=== PATIENT | male | born 1980 | race Caucasian/White ===

== ENCOUNTER 2018-05-24 13:46 | Emergency (ER) | payer SELFPAY ==
--- NOTE | 2018-05-24 14:08 | EDM.PDOC ---
ED HPI GENERAL MEDICAL PROBLEM - General Chief Complaint: ENT Problem Stated Complaint: EAR PAIN Time Seen by Provider: 05/24/18 14:08 Source of Information: Reports: Patient History Limitations: Reports: No Limitations - History of Present Illness INITIAL COMMENTS - FREE TEXT/NARRATIVE: HISTORY AND PHYSICAL: History of present illness: Patient is a 38-year-old male here with complaint of left ear pain. He states that over the past couple of weeks he has had a cold with a cough, runny nose, sinus pain. He reports that he left sided sinus pressure that progressed to left ear pain. He states this morning he used Q-tips to clean out his ear and there was some blood on it. He denies any fevers, chills, nausea, vomiting, diarrhea, abdominal pain. He states cough has gotten better and denies shortness of breath or chest pain. Review of systems: As per history of present illness and below otherwise all systems reviewed and negative. Past medical history: As per history of present illness and as reviewed below otherwise noncontributory. Surgical history: As per history of present illness and as reviewed below otherwise noncontributory. Social history: No reported history of drug or alcohol abuse. Family history: As per history of present illness and as reviewed below otherwise noncontributory. Physical exam: General: Patient sitting comfortably in no acute distress and nontoxic appearing HEENT: Left TM is erythematous and bulging with loss of bony landmarks and light reflex. No maxillary or frontal sinus tenderness. Atraumatic, normocephalic, pupils reactive, negative for conjunctival pallor or scleral icterus, mucous membranes moist, throat clear, neck supple, nontender, trachea midline. No meningeal signs. Lungs: Clear to auscultation, breath sounds equal bilaterally, chest nontender. Heart: S1S2, regular, negative for clicks, rubs, or overt murmur. Abdomen: Soft, nondistended, nontender. Negative for masses or hepatosplenomegaly. Negative for costovertebral tenderness. No rigidity, rebound , guarding. Pelvis: Stable nontender. Genitourinary: Deferred. Rectal: Deferred. Extremities: Atraumatic, negative for cords or calf pain. Neurovascular unremarkable. Neuro: Awake, alert, oriented. Cranial nerves II through XII unremarkable. Cerebellum unremarkable. Motor and sensory unremarkable throughout. Exam nonfocal. Notes: Diagnostics: None Therapeutics: None Prescriptions: Augmentin Impression: Left otitis media Plan: 1. Take medication as instructed. May do saline rinses and [id number] decongestants as needed. 2. Follow up with primary care provider 3. Return to ED as needed as discussed Definitive disposition and diagnosis as appropriate pending reevaluation and review of above. - Related Data Allergies Allergy/AdvReac Type Severity Reaction Status Date / Time No Known Allergies Allergy Verified 05/24/18 14:06 Home Meds: Home Meds Amoxicillin/Clavulanate K [Augmentin 875-125 MG] 1 tab PO BID 7 Days #14 tablet 05/24/18 [Rx] ED ROS ENT - Review of Systems Review Of Systems: ROS reveals no pertinent complaints other than HPI. ED EXAM, ENT - Physical Exam Exam: See Below (See dictation) Departure - Departure Time of Disposition: 14:07 Disposition: Home, Self-Care 01 Condition: Good Clinical Impression: Left otitis media - Discharge Information Prescriptions: Amoxicillin/Clavulanate K [Augmentin 875-125 MG] 1 tab PO BID 7 Days #14 tablet Referrals: PCP,None [Primary Care Provider] - Forms: ED Department Discharge Additional Instructions: The following information is given to patients seen in the emergency department who are being discharged to home. This information is to outline your options for follow-up care. We provide all patients seen in our emergency department with a follow-up referral. The need for follow-up, as well as the timing and circumstances, are variable depending upon the specifics of your emergency department visit. If you don't have a primary care physician on staff, we will provide you with a referral. We always advise you to contact your personal physician following an emergency department visit to inform them of the circumstance of the visit and for follow-up with them and/or the need for any referrals to a consulting specialist. The emergency department will also refer you to a specialist when appropriate. This referral assures that you have the opportunity for follow-up care with a specialist. All of these measure are taken in an effort to provide you with optimal care, which includes your follow-up. Under all circumstances we always encourage you to contact your private physician who remains a resource for coordinating your care. When calling for follow-up care, please make the office aware that this follow-up is from your recent emergency room visit. If for any reason you are refused follow-up, please contact the [facility] Emergency Department at and asked to speak to the emergency department charge nurse. [facility] [address] [place] [id number] [id number] 1. Take medication as instructed. May do saline rinses and wzrx-wlp-nomuyne decongestants as needed. 2. Follow up with primary care provider 3. Return to ED as needed as discussed
== END 2018-05-24 14:19 | disposition home or self-care (01) ==
LOC: MW.ED 13:46
DX: H66.92 Otitis media, unspecified, left ear (principal)
CPT/HCPCS: 99282; 99283

== ENCOUNTER 2018-10-02 15:45 | Emergency (ER) | payer SELFPAY ==
--- NOTE | 2018-10-02 15:58 | EDM.PDOC ---
ED HPI GENERAL MEDICAL PROBLEM - General Chief Complaint: General Stated Complaint: CHILLS, SHAKEY Time Seen by Provider: 10/02/18 15:50 Source of Information: Reports: Patient History Limitations: Reports: No Limitations - History of Present Illness INITIAL COMMENTS - FREE TEXT/NARRATIVE: History of present illness: []Patient has had vomiting and diarrhea greater than 10 episodes a day each for the last 3 days. He is having muscle cramping and states his urine is tea colored as generalized abdominal pain. Review of systems: As per history of present illness and below otherwise all systems reviewed and negative. Past medical history: As per history of present illness and as reviewed below otherwise noncontributory. Surgical history: As per history of present illness and as reviewed below otherwise noncontributory. Social history: No reported history of drug or alcohol abuse. Family history: As per history of present illness and as reviewed below otherwise noncontributory. Physical exam: General: Well developed, well nourished in NAD HEENT: Atraumatic, normocephalic, pupils reactive, negative for conjunctival pallor or scleral icterus, mucous membranes moist, throat clear, neck supple, nontender, trachea midline. Lungs: Clear to auscultation, breath sounds equal bilaterally, chest nontender. Heart: S1S2, regular, negative for clicks, rubs, or JVD. Abdomen: NABS, Soft, nondistended, nontender. Negative for masses or hepatosplenomegaly. Negative for costovertebral tenderness. Pelvis: Stable nontender. Genitourinary: Deferred. Rectal: Deferred. Extremities: Atraumatic, negative for cords or calf pain. Neurovascular unremarkable. Neuro: Awake, alert, oriented. Cranial nerves II through XII unremarkable. Cerebellum unremarkable. Motor and sensory unremarkable throughout. Exam nonfocal. Skin:warm and dry Diagnostics: CBC, chemistry, lactate, UA, CT abdomen pelvis Therapeutics: IV hydration-3L NS, potassium-80meq, Zofran, hyoscyamine ED Course: Improved Impression: Dehydration, hypokalemia, Prescriptions: Zofran Plan: Follow-up primary care this week. Definitive disposition and diagnosis as appropriate pending reevaluation and review of above. Generalized Pain Score (Numeric/FACES): 8 - Related Data Allergies Allergy/AdvReac Type Severity Reaction Status Date / Time No Known Allergies Allergy Verified 10/02/18 15:55 Home Meds: Home Meds Acetaminophen 1,000 mg PO ASDIRECTED 10/02/18 [History] Ondansetron HCl [Zofran] 4 mg PO Q4HR #12 tablet 10/02/18 [Rx] Potassium Chloride 10 meq PO DAILY #7 capsule.er 10/02/18 [Rx] diphenhydrAMINE [Benadryl] 50 mg PO ASDIRECTED 10/02/18 [History] Past Medical History HEENT History: Reports: None Cardiovascular History: Reports: None Respiratory History: Reports: None Gastrointestinal History: Reports: None Genitourinary History: Reports: None Musculoskeletal History: Reports: None Neurological History: Reports: None Psychiatric History: Reports: None Endocrine/Metabolic History: Reports: None Hematologic History: Reports: None Immunologic History: Reports: None Oncologic (Cancer) History: Reports: None Dermatologic History: Reports: None - Infectious Disease History Infectious Disease History: Reports: None - Past Surgical History Head Surgeries/Procedures: Reports: None HEENT Surgical History: Reports: Tonsillectomy Cardiovascular Surgical History: Reports: None GI Surgical History: Reports: Cholecystectomy Male Surgical History: Reports: None Endocrine Surgical History: Reports: None Neurological Surgical History: Reports: None Musculoskeletal Surgical History: Reports: None Dermatological Surgical History: Reports: None Social & Family History - Family History Family Medical History: Noncontributory - Caffeine Use Caffeine Use: Reports: Coffee, Tea ED ROS GENERAL - Review of Systems Review Of Systems: See Below ED EXAM, GENERAL - Physical Exam Exam: See Below Course - Vital Signs Last Recorded V/S: Last Vital Signs Temp 96.7 F 10/02/18 15:57 Pulse 124 H 10/02/18 15:57 Resp 20 10/02/18 15:57 BP 141/108 H 10/02/18 15:57 Pulse Ox 99 10/02/18 15:57 - Orders/Labs/Meds Orders: Active Orders 24 hr Category Date Time Status UA W/MICROSCOPIC [URIN] Stat Lab 10/02/18 16:10 Ordered Sodium Chloride 0.9% [Normal Saline] 1,000 ml Med 10/02/18 17:59 Active IV .Bolus Sodium Chloride 0.9% [Saline Flush] Med 10/02/18 16:10 Active 10 ml FLUSH ASDIRECTED PRN Sodium Chloride 0.9% [Saline Flush] Med 10/02/18 16:10 Active 2.5 ml FLUSH ASDIRECTED PRN Saline Lock Insert [OM.PC] Stat Oth 10/02/18 16:10 Ordered Medication Orders Sodium Chloride (Normal Saline) 1,000 mls @ 250 mls/hr IV .Bolus ONE Stop: 10/02/18 21:58 Last Admin: 10/02/18 18:01 Dose: 250 mls/hr Sodium Chloride (Saline Flush) 10 ml FLUSH ASDIRECTED PRN PRN Reason: Keep Vein Open Sodium Chloride (Saline Flush) 2.5 ml FLUSH ASDIRECTED PRN PRN Reason: Keep Vein Open Labs: Laboratory Tests 10/02/18 10/02/18 10/02/18 Range/Units 16:25 16:25 16:25 WBC 10.72 (4.0-11.0) K/uL RBC 4.76 (4.50-5.90) M/uL Hgb 18.1 H (13.0-17.0) g/dL Hct 48.7 (38.0-50.0) % MCV 102.3 H (80.0-98.0) fL MCH 38.0 H (27.0-32.0) pg MCHC 37.2 H (31.0-37.0) g/dL RDW Std Deviation 52.2 (28.0-62.0) fl RDW Coeff of Gregoria 14 (11.0-15.0) % Plt Count 162 (150-400) K/uL MPV 11.10 (7.40-12.00) fL Neut % (Auto) 80.2 H (48.0-80.0) % Lymph % (Auto) 13.0 L (16.0-40.0) % [place] % (Auto) 6.5 (0.0-15.0) % Eos % (Auto) 0.1 (0.0-7.0) % Baso % (Auto) 0.2 (0.0-1.5) % Neut # (Auto) 8.6 H (1.4-5.7) K/uL Lymph # (Auto) 1.4 (0.6-2.4) K/uL [place] # (Auto) 0.7 (0.0-0.8) K/uL Eos # (Auto) 0.0 (0.0-0.7) K/uL Baso # (Auto) 0.0 (0.0-0.1) K/uL Nucleated RBC % 0.0 /100WBC Nucleated RBCs # 0 K/uL Lactate 2.1 H (0.20-2.00) mmol/L Sodium 131 L (136-148) mmol/L Potassium 2.9 L (3.5-5.1) mmol/L Chloride 91 L (98-107) mmol/L Carbon Dioxide 25.2 (21.0-32.0) mmol/L BUN 12 (7.0-18.0) mg/dL Creatinine 2.6 H (0.8-1.3) mg/dL Est Cr Clr Drug Dosing 40.22 mL/min Estimated GFR (MDRD) 27.5 ml/min Glucose 134 H (74-106) mg/dL Calcium 10.7 H (8.5-10.1) mg/dL Total Bilirubin 3.3 H (0.2-1.0) mg/dL AST 85 H (15-37) IU/L ALT 63 (14-63) IU/L Alkaline Phosphatase 131 H (46-116) U/L Total Protein 9.4 H (6.4-8.2) g/dL Albumin 5.2 H (3.4-5.0) g/dL Globulin 4.2 H (2.6-4.0) g/dL Albumin/Globulin Ratio 1.2 (0.9-1.6) Lipase 79 (73-393) U/L Meds: Medications Generic Name Dose Route Start Last Admin Trade Name Freq PRN Reason Stop Dose Admin Sodium Chloride 1,000 mls @ 250 mls/hr 10/02/18 17:59 10/02/18 18:01 Normal Saline IV 10/02/18 21:58 250 mls/hr .Bolus ONE Administration Sodium Chloride 10 ml 10/02/18 16:10 Saline Flush FLUSH ASDIRECTED PRN Keep Vein Open Sodium Chloride 2.5 ml 10/02/18 16:10 Saline Flush FLUSH ASDIRECTED PRN Keep Vein Open Discontinued Medications Generic Name Dose Route Start Last Admin Trade Name Freq PRN Reason Stop Dose Admin Hyoscyamine 0.125 mg 10/02/18 16:10 10/02/18 16:29 Hyomax-Sl SL 10/02/18 16:11 0.125 mg ONETIME ONE Administration Sodium Chloride 1,000 mls @ 999 mls/hr 10/02/18 16:10 10/02/18 16:29 Normal Saline IV 10/02/18 17:10 999 mls/hr .Bolus ONE Administration Sodium Chloride 1,000 mls @ 999 mls/hr 10/02/18 17:00 10/02/18 17:03 Normal Saline IV 10/02/18 18:00 999 mls/hr .Bolus ONE Administration Ondansetron HCl 4 mg 10/02/18 16:10 10/02/18 16:29 Zofran IVPUSH 10/02/18 16:11 4 mg ONETIME ONE Administration Ondansetron HCl 4 mg 10/02/18 17:16 10/02/18 17:54 Zofran IVPUSH 10/02/18 17:17 4 mg ONETIME ONE Administration Potassium Chloride 40 meq 10/02/18 17:16 10/02/18 17:54 Klor-Con M20 PO 10/02/18 17:17 40 meq ONETIME ONE Administration Potassium Chloride Confirm 10/02/18 17:50 10/02/18 18:07 Klor-Con M20 Administered 10/02/18 17:51 Not Given Dose 20 meq .ROUTE .STK-MED ONE Potassium Chloride 40 meq 10/02/18 18:42 Klor-Con M20 PO 10/02/18 18:43 ONETIME ONE Departure - Departure Time of Disposition: 18:46 Disposition: Home, Self-Care 01 Condition: Good Clinical Impression: Acute gastroenteritis, Dehydration, Acute dehydration - Discharge Information *PRESCRIPTION DRUG MONITORING PROGRAM REVIEWED*: No *COPY OF PRESCRIPTION DRUG MONITORING REPORT IN PATIENT PHU: No Prescriptions: Ondansetron HCl [Zofran] 4 mg PO Q4HR #12 tablet Potassium Chloride 10 meq PO DAILY #7 capsule.er Referrals: PCP,Unknown [Primary Care Provider] - Forms: ED Department Discharge Additional Instructions: The following information is given to patients seen in the emergency department who are being discharged to home. This information is to outline your options for follow-up care. We provide all patients seen in our emergency department with a follow-up referral. The need for follow-up, as well as the timing and circumstances, are variable depending upon the specifics of your emergency department visit. If you don't have a primary care physician on staff, we will provide you with a referral. We always advise you to contact your personal physician following an emergency department visit to inform them of the circumstance of the visit and for follow-up with them and/or the need for any referrals to a consulting specialist. The emergency department will also refer you to a specialist when appropriate. This referral assures that you have the opportunity for follow-up care with a specialist. All of these measure are taken in an effort to provide you with optimal care, which includes your follow-up. Under all circumstances we always encourage you to contact your private physician who remains a resource for coordinating your care. When calling for follow-up care, please make the office aware that this follow-up is from your recent emergency room visit. If for any reason you are refused follow-up, please contact the [facility] Emergency Department at and asked to speak to the emergency department charge nurse. Take meds as directed, follow up with your primary care physician, return to ER if symptoms worsen or change. [facility] [address] [place] [address] - My Orders Last 24 Hours: My Active Orders 10/02/18 16:10 UA W/MICROSCOPIC [URIN] Stat Sodium Chloride 0.9% [Saline Flush] 10 ml FLUSH ASDIRECTED PRN Sodium Chloride 0.9% [Saline Flush] 2.5 ml FLUSH ASDIRECTED PRN Saline Lock Insert [OM.PC] Stat 10/02/18 17:59 Sodium Chloride 0.9% [Normal Saline] 1,000 ml IV .Bolus - Assessment/Plan Last 24 Hours: My Active Orders 10/02/18 16:10 UA W/MICROSCOPIC [URIN] Stat Sodium Chloride 0.9% [Saline Flush] 10 ml FLUSH ASDIRECTED PRN Sodium Chloride 0.9% [Saline Flush] 2.5 ml FLUSH ASDIRECTED PRN Saline Lock Insert [OM.PC] Stat 10/02/18 17:59 Sodium Chloride 0.9% [Normal Saline] 1,000 ml IV .Bolus
[2018-10-02] MEDS ORDERED: Ondansetron 4 MG/2 ML SDV IVPUSH ONE ×2 (16:10→17:16)
[2018-10-02] MEDS ORDERED: Sodium Chloride 0.9% 10 ML Syringe FLUSH PRN (16:10)
[2018-10-02] MEDS ORDERED: Sodium Chloride 0.9% 2.5 ML Syringe FLUSH PRN (16:10)
[2018-10-02] MEDS ORDERED: Sodium Chloride 0.9% 1,000 ML IV ONE ×3 (16:10→17:59)
[2018-10-02] MEDS ORDERED: Hyoscyamine 0.125 MG Tab.SL SL ONE (16:10)
[2018-10-02] MEDS ORDERED: Potassium Chloride 20 MEQ Tab.ER PO ONE ×2 (17:16→18:42)
[2018-10-02] MEDS ORDERED: Potassium Chloride 20 MEQ Tab.ER ONE (17:50)
--- NOTE | 2018-10-02 18:30 | CT ---
TECHNIQUE: Noncontrast CT abdomen and pelvis. INDICATION: Vomiting and diarrhea, increased LFTs, post cholecystectomy. COMPARISON: None. FINDINGS: Postop changes of cholecystectomy. No fluid collections or free air. No biliary dilation. Questionable low-attenuation area in the anterior left hepatic lobe image 32 of series 201. Unclear if this is abnormal hepatic parenchyma or artifact, as there are areas of beam hardening artifact throughout the abdomen and pelvis. Pancreas, spleen, adrenal glands, and kidneys are normal. No bowel obstruction. No adenopathy. IMPRESSION: 1. Status post cholecystectomy. 2. Artifact versus parenchymal abnormality in the left hepatic lobe. Recommend IV contrast-enhanced CT of the liver. 3. No biliary dilation. Dictated by Michael Infante MD @ 10/02/2018 6:29:01 PM Please note that all CT scans at this facility use dose modulation, iterative reconstruction, and/or weight-based dosing when appropriate to reduce radiation dose to as low as reasonably achievable. Dictated by: Michael Infante MD @ 10/02/2018 18:29:05 (Electronically Signed)
== END 2018-10-02 19:16 | disposition home or self-care (01) ==
LOC: MW.ED 15:45
DX: K52.9 Noninfective gastroenteritis and colitis, unspecified (principal); E87.6 Hypokalemia; E86.0 Dehydration; Z79.899 Other long term (current) drug therapy
CPT/HCPCS: 36415; 74176; 80053; 81001; 83605; 83690; 85025; 96361; 96374; 96376; 99284; A9270; J2405; J7040

== ENCOUNTER 2018-10-17 15:04 | Emergency (ER) | payer OTHER ==
--- NOTE | 2018-10-17 15:57 | EDM.PDOC ---
ED HPI GENERAL MEDICAL PROBLEM - General Chief Complaint: Genitourinary Problem Stated Complaint: PEEING BLOOD Time Seen by Provider: 10/17/18 15:22 Source of Information: Reports: Patient History Limitations: Reports: No Limitations - History of Present Illness INITIAL COMMENTS - FREE TEXT/NARRATIVE: HISTORY AND PHYSICAL: History of present illness: Presents reporting "Peed blood". Reported there was some stinging with urination as well. His never had this before. He states he has not been sexually active in over a year. He reports that 3 weeks ago he was seen here in the emergency room for dehydration. Since that time he states he has been trying to drink a couple of liters a day. 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 A review of the records indicates patient was seen for nausea vomiting and dehydration on October 02, 2018. Sodium 131, potassium 2.9, be went 12, creatinine 2.6, WBC 10.7, hemoglobin 18.1 and lipase 79. He was treated with IV fluids, Zofran, potassium replacement, and hyoscyamine. Discharged. The patient did not follow-up and is considering this visit a follow-up visit. Review of systems: As per history of present illness and below otherwise all systems reviewed and negative. Past medical history: As per history of present illness and as reviewed below otherwise noncontributory. Surgical history: As per history of present illness and as reviewed below otherwise noncontributory. Social history: No reported history of drug or alcohol abuse. Family history: As per history of present illness and as reviewed below otherwise noncontributory. Physical exam: HEENT: Atraumatic, normocephalic, pupils reactive, negative for conjunctival pallor or scleral icterus, mucous membranes moist, throat clear, neck supple, nontender, trachea midline. Lungs: Clear to auscultation, breath sounds equal bilaterally, chest nontender. Heart: S1S2, regular, negative for clicks, rubs, or JVD. Abdomen: Soft, nondistended, nontender. Negative for masses or hepatosplenomegaly. Negative for costovertebral tenderness. Pelvis: Stable nontender. Genitourinary: Deferred. Rectal: Deferred. Extremities: Atraumatic, negative for cords or calf pain. Neurovascular unremarkable. Neuro: Awake, alert, oriented. Cranial nerves II through XII unremarkable. Cerebellum unremarkable. Motor and sensory unremarkable throughout. Exam nonfocal. Diagnostics: [] Therapeutics: [] Impression: [] Plan: [] Definitive disposition and diagnosis as appropriate pending reevaluation and review of above. Left Flank Pain Score (Numeric/FACES): 5 - Related Data Allergies Allergy/AdvReac Type Severity Reaction Status Date / Time No Known Allergies Allergy Verified 10/17/18 15:16 Home Meds: Home Meds diphenhydrAMINE [Benadryl] 50 mg PO ASDIRECTED 10/02/18 [History] Potassium Chloride [K-Tab] 1 tab PO DAILY #3 tablet.er 10/17/18 [Rx] Past Medical History - Past Health History Medical/Surgical History: Denies Medical/Surgical History HEENT History: Reports: None Cardiovascular History: Reports: None Respiratory History: Reports: None Gastrointestinal History: Reports: None Genitourinary History: Reports: None Musculoskeletal History: Reports: None Neurological History: Reports: None Psychiatric History: Reports: None Endocrine/Metabolic History: Reports: None Hematologic History: Reports: None Immunologic History: Reports: None Oncologic (Cancer) History: Reports: None Dermatologic History: Reports: None - Infectious Disease History Infectious Disease History: Reports: None - Past Surgical History Head Surgeries/Procedures: Reports: None HEENT Surgical History: Reports: Tonsillectomy Cardiovascular Surgical History: Reports: None GI Surgical History: Reports: Cholecystectomy Male Surgical History: Reports: None Endocrine Surgical History: Reports: None Neurological Surgical History: Reports: None Musculoskeletal Surgical History: Reports: None Dermatological Surgical History: Reports: None Social & Family History - Family History Family Medical History: Noncontributory - Tobacco Use Smoking Status *Q: Current Every Day Smoker Years of Tobacco use: 23 Packs/Tins Daily: 10 - Caffeine Use Caffeine Use: Reports: Coffee, Tea - Alcohol Use Number of Drinks Per Day: 4 Date of Last Drink: 10/16/18 Time of Last Drink: 18:00 - Recreational Drug Use Recreational Drug Use: Yes Recreational Drug Type: Reports: Marijuana/Hashish ED ROS GENERAL - Review of Systems Review Of Systems: ROS reveals no pertinent complaints other than HPI. ED EXAM, RENAL/ - Physical Exam Exam: See Below Exam Limited By: No Limitations General Appearance: Alert, No Apparent Distress Ears: Normal External Exam Nose: Normal Inspection Throat/Mouth: Normal Inspection Head: Atraumatic, Normocephalic Neck: Normal Inspection Respiratory/Chest: No Respiratory Distress, Lungs Clear Cardiovascular: Normal Peripheral Pulses, Regular Rate, Rhythm, No Murmur Back Exam: Normal Inspection. No: CVA Tenderness (L), CVA Tenderness (R) Extremities: Normal Inspection Neurological: Alert, Oriented Psychiatric: Normal Affect, Normal Mood Course - Vital Signs Last Recorded V/S: Last Vital Signs Temp 36.6 C 10/17/18 15:12 Pulse 97 10/17/18 15:12 Resp 18 10/17/18 15:12 BP 132/99 H 10/17/18 15:12 Pulse Ox 96 10/17/18 15:12 - Orders/Labs/Meds Labs: Laboratory Tests 10/17/18 10/17/18 10/17/18 Range/Units 15:45 15:45 15:49 WBC 6.38 (4.0-11.0) K/uL RBC 4.01 L (4.50-5.90) M/uL Hgb 15.2 (13.0-17.0) g/dL Hct 41.6 (38.0-50.0) % MCV 103.7 H (80.0-98.0) fL MCH 37.9 H (27.0-32.0) pg MCHC 36.5 (31.0-37.0) g/dL RDW Std Deviation 50.3 (28.0-62.0) fl RDW Coeff of Gregoria 13 (11.0-15.0) % Plt Count 172 (150-400) K/uL MPV 9.90 (7.40-12.00) fL Neut % (Auto) 50.2 (48.0-80.0) % Lymph % (Auto) 42.9 H (16.0-40.0) % [place] % (Auto) 5.2 (0.0-15.0) % Eos % (Auto) 1.1 (0.0-7.0) % Baso % (Auto) 0.6 (0.0-1.5) % Neut # (Auto) 3.2 (1.4-5.7) K/uL Lymph # (Auto) 2.7 H (0.6-2.4) K/uL [place] # (Auto) 0.3 (0.0-0.8) K/uL Eos # (Auto) 0.1 (0.0-0.7) K/uL Baso # (Auto) 0.0 (0.0-0.1) K/uL Nucleated RBC % 0.0 /100WBC Nucleated RBCs # 0 K/uL Sodium 139 (136-148) mmol/L Potassium 3.1 L (3.5-5.1) mmol/L Chloride 102 (98-107) mmol/L Carbon Dioxide 28.2 (21.0-32.0) mmol/L BUN 7 (7.0-18.0) mg/dL Creatinine 0.7 L (0.8-1.3) mg/dL Est Cr Clr Drug Dosing 149.40 mL/min Estimated GFR (MDRD) > 60.0 ml/min Glucose 105 (74-106) mg/dL Calcium 8.6 (8.5-10.1) mg/dL Total Bilirubin 0.4 (0.2-1.0) mg/dL AST 162 H (15-37) IU/L ALT 67 H (14-63) IU/L Alkaline Phosphatase 95 (46-116) U/L Total Protein 6.7 (6.4-8.2) g/dL Albumin 3.4 (3.4-5.0) g/dL Globulin 3.3 (2.6-4.0) g/dL Albumin/Globulin Ratio 1.0 (0.9-1.6) Lipase 109 (73-393) U/L Urine Color YELLOW Urine Appearance CLEAR Urine pH 6.0 (5.0-8.0) Ur Specific [place] <= 1.005 (1.001-1.035) Urine Protein NEGATIVE (NEGATIVE) mg/dL Urine Glucose (UA) NEGATIVE (NEGATIVE) mg/dL Urine Ketones NEGATIVE (NEGATIVE) mg/dL Urine Occult Blood LARGE H (NEGATIVE) Urine Nitrite NEGATIVE (NEGATIVE) Urine Bilirubin NEGATIVE (NEGATIVE) Urine Urobilinogen 0.2 (<2.0) EU/dL Ur Leukocyte Esterase NEGATIVE (NEGATIVE) Urine RBC 0-3 (0-2/HPF) Urine WBC 0-2 (0-5/HPF) Ur Epithelial Cells RARE (NONE-FEW) Urine Bacteria NOT SEEN (NEGATIVE) Departure - Departure Time of Disposition: 17:22 Disposition: Home, Self-Care 01 Condition: Good Clinical Impression: Hypokalemia Hematuria Qualifiers: Hematuria type: gross Qualified Code(s): R31.0 - Gross hematuria - Discharge Information *PRESCRIPTION DRUG MONITORING PROGRAM REVIEWED*: Not Applicable *COPY OF PRESCRIPTION DRUG MONITORING REPORT IN PATIENT PHU: Not Applicable Referrals: PCP,None [Primary Care Provider] - [facility] [Outside] [facility] [Outside] Brayan Combs MD [Physician] - Forms: ED Department Discharge Additional Instructions: The following information is given to patients seen in the emergency department who are being discharged to home. This information is to outline your options for follow-up care. We provide all patients seen in our emergency department with a follow-up referral. The need for follow-up, as well as the timing and circumstances, are variable depending upon the specifics of your emergency department visit. If you don't have a primary care physician on staff, we will provide you with a referral. We always advise you to contact your personal physician following an emergency department visit to inform them of the circumstance of the visit and for follow-up with them and/or the need for any referrals to a consulting specialist. The emergency department will also refer you to a specialist when appropriate. This referral assures that you have the opportunity for follow-up care with a specialist. All of these measure are taken in an effort to provide you with optimal care, which includes your follow-up. Under all circumstances we always encourage you to contact your private physician who remains a resource for coordinating your care. When calling for follow-up care, please make the office aware that this follow-up is from your recent emergency room visit. If for any reason you are refused follow-up, please contact the [facility] Emergency Department at and asked to speak to the emergency department charge nurse. 1. You must establish care with a primary care provider. You may make an appointment at the [facility] or [facility] at the numbers listed above. 2. Must follow-up in urology. Call Dr. Brayan Combs at the number listed above. Tell them you have been seen in the emergency room. 3. Drink plenty of fluids. 4. Take your potassium pill the next 3 days.
[2018-10-17 16:20] LABS: BLOOD UREA NITROGEN,BUN 7 mg/dL (7.0-18.0); CARBON DIOXIDE,CO2 28.2 mmol/L (21.0-32.0); CHLORIDE,CL 102 mmol/L (98-107); GLUCOSE RANDOM 105 mg/dL (74-106); LIPASE 109 U/L (73-393); POTASSIUM,K 3.1 mmol/L (3.5-5.1); SODIUM,NA 139 mmol/L (136-148)
[2018-10-17] MEDS ORDERED: Potassium Chloride 20 MEQ Tab.ER PO ONE (17:26)
== END 2018-10-17 17:47 | disposition home or self-care (01) ==
LOC: MW.ED 15:04
DX: R31.0 Gross hematuria (principal); E87.6 Hypokalemia; F17.210 Nicotine dependence, cigarettes, uncomplicated; Z79.899 Other long term (current) drug therapy
CPT/HCPCS: 36415; 80053; 81001; 83690; 85025; 99284; A9270; 99283